=== PATIENT | male | born 1965 | race Caucasian/White ===

== ENCOUNTER 2024-09-13 17:04 | Inpatient (IN) ==
[2024-09-13 18:07] LABS: Alanine Aminotransferase 15 U/L (7-52); Albumin Globulin Ratio 1.5 (0.9-2); Alkaline Phosphatase 93 U/L (34-104); Anion Gap 7 (3-11); Aspartate Aminotransferase 14 U/L (13-39); Bilirubin,Total 0.4 mg/dl (0.2-1.0); Blood Urea Nitrogen 12 mg/dl (6-23); Calcium 9.1 mg/dl (8.6-10.3); Carbon Dioxide 29 mmol/L (21-32); Chloride 107 mmol/L (98-107); Globulin 2.7 gm/dl (2.5-4.0); Glucose 109 mg/dl (70-99(Fasting)); Magnesium 1.9 mg/dl (1.7-2.4); Potassium 4.1 mmol/L (3.5-5.1); Sodium 143 mmol/L (136-145); Total Protein 6.7 gm/dl (6.0-8.3)
[2024-09-13 18:11] LABS: Appearance Urine Clear (Clear); Bacteria Urine Automated None Seen (None Seen); Bilirubin Urine Negative (Negative); Blood Urine Negative (Negative); Cast Urine Automated 0-2 /lpf (0-2); Color Urine Yellow; Glucose Urine UA Negative (Negative); Ketones Urine Trace (Negative); Leukocyte Esterase Urine Trace (Negative); Mucus Urine Present (None Prsent); Nitrite Urine Negative (Negative); Protein Urine Negative (Negative); RBC Urine Automated 0-2 /hpf (0-2); Urobilinogen Urine Negative (Negative); pH Urine 6.5 (4.5-7.5)
[2024-09-13 18:13] LABS: Troponin I High Sensitivity 4.6 pg/ml (0-20)
[2024-09-13 18:15] LABS: INR 0.9 (0.9-1.1); Partial Thromboplastin Ratio 0.9; Partial Thromboplastin Time 25 Seconds (21-31); Prothrombin Time 9.8 Seconds (9.0-12.0)
[2024-09-13 18:16] LABS: Basophils # (auto) 0.01 K/uL (0.00-0.20); Basophils % (auto) 0.1 %; Eosinophils # (auto) 0.15 K/uL (0.00-0.50); Eosinophils % (auto) 2.2 %; Hematocrit (blood only) 39.4 % (42.0-52.0); Hemoglobin 12.7 g/dl (14.0-18.0); Immature Granulocytes # (auto) 0.04 K/uL (0.01-0.20); Immature Granulocytes % (auto) 0.6 %; Lymphocytes % (auto) 18.8 %; Mean Corpuscular Hemoglobin 25.8 pg (25.0-34.0); Mean Corpuscular Hgb Conc 32.2 g/dL (32.0-36.0); Mean Corpuscular Volume 80.1 fL (80.0-100.0); Monocytes # (auto) 0.53 K/uL (0.11-0.59); Monocytes % (auto) 7.7 %; Neutrophils # (auto) 4.89 K/uL (1.40-6.50); Neutrophils % (auto) 70.6 %; Platelet Count 259 K/uL (130-400); RDW Coefficient of Variation 13.8 % (11.5-14.5); RDW Standard Deviation 39.8 fL (36.4-46.3); Red Blood Count 4.92 M/uL (4.70-6.10); White Blood Count 6.92 K/ul (4.8-10.8)
--- NOTE | 2024-09-13 18:34 | Emergency Department Note ---
Impression & Plan Slurred speech, Falls ED Provider Note Provider: Radu Guo MD DATE OF SERVICE: 09/13/2024 CHIEF COMPLAINT: Slurred speech, discoordination and falls, facial droop, tongue swollen HISTORY OF PRESENT ILLNESS: Patient is a 59-year-old gentleman history of cardiac stents and hypertension on Plavix presenting here with family for evaluation of issues developing of the past 3 weeks. Approximate 3 weeks of the patient had from report of fairly sudden onset of some right facial droop slurred speech and discoordination. Evidently was seen at [facility] and had imaging and was told this was not a stroke and sent home. Followed up this past week with his family doctor who placed outpatient neurology referral. They heard today that the patient would not be able to be seen by neurology until July 2025. Patient has had falls every day at home due to his discoordination and has not improved at all. They states seems at times like he is choking a little bit on food and drink. Patient denies any significant pain. States he has fallen somewhat frequently. Denies fever or significant cough or cold symptoms. No history of stroke. He denies any numbness. Family are frustrated as things have changed as is the patient once some additional answers and evaluation. PAST MEDICAL HISTORY: As noted above MEDICATIONS: Reviewed home medication list available with family SOCIAL HISTORY: Not currently smoking PHYSICAL EXAM: GENERAL: alert and oriented in no acute distress on stretcher Head: normocephalic and atraumatic EYES: No injection, discharge or icterus. PERRL, EOMI. NECK: Trachea midline. Supple without crepitus ENT: Mucous membranes pink and moist. Pharynx without erythema or exudate. Tongue seems somewhat prominent and swollen but not particularly erythematous. No stridor or trismus appreciable LUNGS: Airway patent. No retractions. Breath sounds clear with good air entry bilaterally. HEART: Regular rate and rhythm. No chest wall tenderness ABDOMEN: Soft and non-tender, without guarding or rebound. SKIN: Acyanotic, warm, dry, without rashes EXTREMITIES: Without swelling, tenderness or deformity NEUROLOGICAL: Right facial droop and slurred speech. Moving all extremities fairly symmetrically with decent strength but some bilateral finger-nose ataxia. No clear aphasia. Tongue midline. EK bpm normal sinus rhythm. No PVC or PAC. No acute ST segment elevation or depression with QTc of 414. CONTINUOUS CARDIAC MONITORING: was ordered and showed a heart rate of 60s to 80s bpm in normal sinus rhythm Patient's laboratory studies and imaging reviewed. Differential includes Infection, dehydration, metabolic abnormality, hypo/hyperglycemia, electrolyte disturbance, anemia, hypoxia, cardiac sources, intracerebral event/neurologic, as well as other pathologies. IMPRESSION/MEDICAL DECISION MAKING: Patient with some obvious slurred speech and right facial droop. Moving all extremities but does have some particular bilateral [id number] ataxia. 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 Seems to do [id number] bilaterally fairly symmetric. Tongue does appear a bit generous in size but not stridulous. Do have significant concerns patient suffering from some possible neurological complication of possible CVA. He is not however hemiplegic at this time and certainly symptoms been ongoing for several weeks and outside the window for any thrombolytics. Will send for CT imaging of the head as well as CT angiograms. Blood work to be obtained. Patient does not appear meningitic. There is no evidence of any significant physical trauma and the patient denies pain. There is no other infectious symptoms and he is not on an CARO inhibitor. Time course also does not seem that consistent with everything else to represent angioedema. Blood work here without anemia or leukocytosis of significance. No severe electrolyte abnormal signs of renal dysfunction. UA negative as well as respiratory viral panel. CT of the head and CT angiograms of the head and neck per radiology without acute intracranial abnormality such as bleed or mass noted. No large vessel occlusion with some plaque calcifications noted but no severe/critical stenoses reported. Discussed with patient and family. Has been stable for some time but given that outpatient neurology has told him would be 11 months to be seen and with his significant fall history and deficits to believe that bring him in for further neurological workup including MRI and neurologic consultation seems reasonable. Does not seem like encephalitis or meningitis. Will attempt to obtain records from outside facility. DIAGNOSIS: Slurred speech, falls DISPOSITION: Hospitalist will evaluate Patient was agreeable with this plan. Past Med/Surg History Problem List (Updated 09/13/24 @ 21:24 by Radu Guo M.D.) Falls (Acute) Slurred speech (Acute) Social History Smoking Status: Former smoker Preferred Language: [place] Feels Safe at Home: Yes Home Meds Home Medications Medication Instructions Recorded Confirmed DuoNeb 2.5 mg NEB Q4 PRN Shortness Of 10/18/24 10/18/24 Breath Narcan 4 mg intranasal PRN Opioid Overdose 09/13/24 albuterol sulfate 90 mcg/actuation 2 puff inhalation 4XD PRN 09/13/24 09/13/24 aerosol inhaler Shortness Of Breath aspirin 81 mg tablet,delayed 81 mg PO DAILY 09/13/24 09/13/24 release atorvastatin 40 mg tablet 40 mg DAILY 09/13/24 09/13/24 clopidogrel 75 mg tablet 75 mg PO DAILY 09/13/24 09/13/24 diazepam 5 mg tablet 5 mg PO HS 09/13/24 09/13/24 ezetimibe 10 mg tablet 10 mg PO DAILY 09/13/24 09/13/24 fluticasone fur. 100 mcg-umeclid 1 inh inhalation DAILY 09/13/24 09/13/24 62.5 mcg-vilant 25 mcg inhalat.powder (Trelegy Ellipta) fluticasone propionate 50 2 spray intranasal DAILY 09/13/24 09/13/24 mcg/actuation nasal spray,suspension hydrocodone 7.5 mg-acetaminophen 1 tab PO 3XD PRN Pain 09/13/24 09/13/24 325 mg tablet meclizine 25 mg tablet 25 mg PO TID PRN Dizziness Or 09/13/24 09/13/24 Vertigo metformin 500 mg tablet 500 mg PO BID 09/13/24 09/13/24 metoprolol tartrate 50 mg tablet 50 mg PO DAILY 09/13/24 09/13/24 pantoprazole 40 mg tablet,delayed 40 mg PO DAILY 09/13/24 09/13/24 release terazosin 5 mg capsule mg 09/13/24 zaleplon 5 mg capsule 5 mg PO HS 09/13/24 09/13/24 Results & Data (ED) Vital Signs Vital Signs - 24 hr 09/13/24 17:10 09/13/24 18:36 09/13/24 19:06 Temperature 36.7 C Temperature Source Temporal Artery Scan Pulse Rate 66 73 Pulse Rate [Finger] 63 Pulse Rhythm [Finger] Regular Pulse Strength [Finger] Normal Respiratory Rate 19 18 Respiratory Effort / Characteristics Non-Labored Spontaneous Respiratory Depth Normal Blood Pressure 121/62 Blood Pressure [Right Arm] 122/63 Blood Pressure Mean 81 Blood Pressure Mean [Right Arm] 82 Blood Pressure Position [Right Arm] Lying Pulse Oximetry 96 Oxygen Delivery Method Room Air Sepsis Recent Fever Within 48 Hours No Sepsis New/Unexplained Change in Mental Status N/A Sepsis Action Taken by Nursing No Action Required Laboratory Data 09/13/24 17:30 09/13/24 17:30 Lab Results 09/13/24 09/13/24 Range/Units 17:30 17:47 WBC 6.92 (4.8-10.8) K/ul RBC 4.92 (4.70-6.10) M/uL Hgb 12.7 L (14.0-18.0) g/dl Hct 39.4 L (42.0-52.0) % MCV 80.1 (80.0-100.0) fL MCH 25.8 (25.0-34.0) pg MCHC 32.2 (32.0-36.0) g/dL RDW Std Deviation 39.8 (36.4-46.3) fL RDW Coeff of Geno 13.8 (11.5-14.5) % Plt Count 259 (130-400) K/uL MPV 9.0 L (9.4-12.4) fL Immature Gran % (Auto) 0.6 % Neut % (Auto) 70.6 % Lymph % (Auto) 18.8 % Griggs % (Auto) 7.7 % Eos % (Auto) 2.2 % Baso % (Auto) 0.1 % Neut # (Auto) 4.89 (1.40-6.50) K/uL Lymph # (Auto) 1.30 (1.20-3.40) K/uL Griggs # (Auto) 0.53 (0.11-0.59) K/uL Eos # (Auto) 0.15 (0.00-0.50) K/uL Baso # (Auto) 0.01 (0.00-0.20) K/uL Immature Gran # (Auto) 0.04 (0.01-0.20) K/uL PT 9.8 (9.0-12.0) Seconds INR 0.9 (0.9-1.1) APTT 25 (21-31) Seconds PTT Ratio 0.9 Sodium 143 (136-145) mmol/L Potassium 4.1 (3.5-5.1) mmol/L Chloride 107 (98-107) mmol/L Carbon Dioxide 29 (21-32) mmol/L Anion Gap 7 (3-11) BUN 12 (6-23) mg/dl Creatinine 0.86 (0.6-1.4) mg/dl Est Cr Clr Drug Dosing Not Reportable eGFR 100.99 BUN/Creatinine Ratio 14.0 (10-20) Glucose 109 H (70-99(Fasting)) mg/dl Calcium 9.1 (8.6-10.3) mg/dl Magnesium 1.9 (1.7-2.4) mg/dl Total Bilirubin 0.4 (0.2-1.0) mg/dl AST 14 (13-39) U/L ALT 15 (7-52) U/L Alkaline Phosphatase 93 (34-104) U/L Troponin I High Sens 4.6 (0-20) pg/ml Total Protein 6.7 (6.0-8.3) gm/dl Albumin 4.0 (3.4-5.0) gm/dl Globulin 2.7 (2.5-4.0) gm/dl Albumin/Globulin Ratio 1.5 (0.9-2) Urine Color Yellow Urine Appearance Clear (Clear) Urine pH 6.5 (4.5-7.5) Ur Specific [place] 1.020 (1.000-1.030) Urine Protein Negative (Negative) Urine Glucose (UA) Negative (Negative) Urine Ketones Trace H (Negative) Urine Blood Negative (Negative) Urine Nitrite Negative (Negative) Urine Bilirubin Negative (Negative) Urine Urobilinogen Negative (Negative) Ur Leukocyte Esterase Trace H (Negative) Urine WBC (Auto) 6-10 H (0-5) /hpf Urine RBC (Auto) 0-2 (0-2) /hpf U Hyaline Cast (Auto) 0-2 (0-2) /lpf U Epithel Cells (Auto) 3-5 H (0-2) /hpf Urine Bacteria (Auto) None Seen (None Seen) Urine Mucus Present A (None Prsent) Adenovirus (PCR) Not Detected (NotDetected) B. pertussis DNA (PCR) Not Detected (NotDetected) B.parapertussis DNA PCR Not Detected (NotDetected) C. pneumoniae DNA (PCR) Not Detected (NotDetected) Coronavirus OC43 (PCR) Not Detected (NotDetected) Coronavirus HKU1 (PCR) Not Detected (NotDetected) Coronavirus 229E (PCR) Not Detected (NotDetected) SARS-CoV-2 (PCR) Not Detected (NotDetected) Coronavirus NL63 (PCR) Not Detected (NotDetected) Human Metapneumovir PCR Not Detected (NotDetected) Influenza Type A (PCR) Not Detected (NotDetected) Influenza Type B (PCR) Not Detected (NotDetected) M. pneumoniae (PCR) Not Detected (NotDetected) Parainfluenza 1 (PCR) Not Detected (NotDetected) Parainfluenza 2 (PCR) Not Detected (NotDetected) Parainfluenza 3 (PCR) Not Detected (NotDetected) Parainfluenza 4 (PCR) Not Detected (NotDetected) RSV (PCR) Not Detected (NotDetected) Entero/Rhino (PCR) Not Detected (NotDetected) Administered Medications Discontinued Medications Gadobutrol (Gadobutrol 15ml Vial) 10.5 ml IV ONCE ONE Stop: 09/13/24 20:59 Last Admin: 09/13/24 20:59 Dose: 10.5 ml Documented By: JUAN LUIS Ioversol (Optiray 320 125ml) 119 ml IV ONCE ONE Stop: 09/13/24 18:35 Last Admin: 09/13/24 18:35 Dose: 119 ml Documented By: CE[facility] Imaging Data Radiologist's Impression: Head CT 09/13/24 17:32 CT OF THE HEAD WITHOUT CONTRAST CLINICAL HISTORY: neuro deficit, acute stroke suspected COMPARISON STUDY: No previous studies for comparison. TECHNIQUE: Helical axial images of the head were obtained without IV contrast. Automated exposure control was utilized for the study. A dose lowering technique was utilized adhering to the principles of ALARA. FINDINGS: No acute intracranial hemorrhage, midline shift or mass effect is present. The ventricular system is unremarkable. The basal cisterns are patent. No extra-axial collections are present. There are no findings to suggest acute dural sinus thrombosis or acute territorial infarct. Mild cerebellar atrophy. No significant calvarial abnormalities are present. There is a small mucous retention cyst within the right maxillary sinus. IMPRESSION: No acute intracranial findings. ACT 112: Negative or not required by law. Electronically signed by: Deven Zapata M.D. 09/13/2024 6:42 PM Head CTA 09/13/24 17:32 CTA ANGIOGRAPHY OF THE HEAD CLINICAL HISTORY: neuro deficit, acute stroke suspected COMPARISON STUDY: No previous studies for comparison. TECHNIQUE: Helical axial images of the head were obtained following uneventful intravenous administration of 119 cc of Optiray. Sagittal and coronal reconstructions were viewed as well as maximal intensity projections on an independent 3-D workstation. Automated exposure control was utilized for the study. A dose lowering technique was utilized adhering to the principles of ALARA. CT DOSE: 1068.34 mGy.cm FINDINGS: There is extensive plaque within the bilateral cavernous carotids. This results in moderate stenoses of these vessels. The bilateral M1, M2, A1 and A2 segments are patent. No intracranial aneurysm. There is no dissection within the intracranial vessels. No vessel occlusion within the posterior circulation is identified. Mild stenosis of the intracranial portion of the left vertebral artery is noted. There is persistence of the left posterior cerebral artery. IMPRESSION: 1. No large vessel occlusion. No intracranial aneurysm. 2. Extensive calcified plaque within the bilateral cavernous carotids which results in moderate stenosis of these vessels. ACT 112: Negative or not required by law. Electronically signed by: Deven Zapata M.D. 09/13/2024 6:50 PM Neck CTA 09/13/24 17:32 CT ANGIOGRAPHY OF THE NECK WITH CONTRAST CLINICAL HISTORY: neuro deficit, acute stroke suspected COMPARISON STUDY: No previous studies for comparison. Technique: CT angiography of the carotid and vertebral arteries was obtained using Optiray and 3D reconstruction on an independent workstation. NASCET criteria was utilized. Automated exposure control was utilized for the study. A dose lowering technique was utilized adhering to the principles of ALARA. Findings: A 6 mm left upper lobe nodule on image 51 of 421 is incidentally noted. Lung apices are otherwise unremarkable. There are no cervical spine fractures. There is no cervical lymphadenopathy. The vertebral arteries are patent. The right vertebral artery is dominant. Mild multifocal stenoses of the left vertebral artery within the neck are present. Suspected right carotid endarterectomy. The right common carotid and cervical internal carotid arteries are patent. There is moderate plaque within the proximal left internal carotid artery which results in mild narrowing with 30% stenosis. No severe stenoses are present. There is no dissection or aneurysm within the neck. IMPRESSION: 1. Status post suspected right carotid endarterectomy. No recurrent stenosis within the right internal carotid artery. 2. Mild stenosis of the proximal left internal carotid artery, as described above. No severe stenoses. 3. Mild multifocal stenoses within the cervical portion of the left vertebral artery. 4. 6 mm left upper lobe pulmonary nodule. A chest CT in 6 months to ensure stability is recommended. ACT 112: Negative or not required by law. Electronically signed by: Deven Zapata M.D. 09/13/2024 6:48 PM Discharge Plan Visit Data Chief Complaint: TIA Symptoms Stated Complaint: DROOLING, CONFUSION, UNSTABLE, SPEACH ED Provider: Radu Guo Discharge Problem: Slurred speech, Falls Patient Disposition: Being Evaluated by Hospitalist Forms Stand Alone Forms: [facility] Prescriptions Prescriptions: No Action albuterol sulfate 90 mcg/actuation HFA aerosol inhaler 2 puff INHALATION 4XD PRN (Reason: Shortness Of Breath) atorvastatin 40 mg tablet 40 mg DAILY clopidogrel 75 mg tablet 75 mg PO DAILY diazepam 5 mg tablet 5 mg PO HS ezetimibe 10 mg tablet 10 mg PO DAILY fluticasone propionate 50 mcg/actuation spray,suspension 2 spray INTRANASAL DAILY hydrocodone-acetaminophen 7.5-325 mg tablet 1 tab PO 3XD PRN (Reason: Pain) meclizine 25 mg tablet 25 mg PO TID PRN (Reason: Dizziness Or Vertigo) metformin 500 mg tablet 500 mg PO BID metoprolol tartrate 50 mg tablet 50 mg PO DAILY pantoprazole 40 mg tablet,delayed release (DR/EC) 40 mg PO DAILY terazosin 5 mg capsule Trelegy Ellipta 100-62.5-25 mcg blister with device 1 inh INHALATION DAILY zaleplon 5 mg capsule 5 mg PO HS aspirin 81 mg tablet,delayed release (DR/EC) 81 mg PO DAILY Narcan 4 mg 4 mg intranasal PRN (Reason: Opioid Overdose) DuoNeb 2.5 mg NEB Q4 PRN (Reason: Shortness Of Breath) Referrals Referrals: PCP,NO [Primary Care Provider] -
[2024-09-13] MEDS: OPTIRAY 320 125ml IV ONE (18:35)
--- NOTE | 2024-09-13 18:43 | CT Scan Report ---
CT OF THE HEAD WITHOUT CONTRAST CLINICAL HISTORY: neuro deficit, acute stroke suspected COMPARISON STUDY: No previous studies for comparison. TECHNIQUE: Helical axial images of the head were obtained without IV contrast. Automated exposure con trol was utilized for the study. A dose lowering technique was utilized adhering to the principles o f ALARA. FINDINGS: No acute intracranial hemorrhage, midline shift or mass effect is present. The ventricular system is unremarkable. The basal cisterns are patent. No extra-axial collections are present. There are no findings to suggest acute dural sinus thrombosis or acute territorial infarct. Mild cerebellar atrophy. No significant calvarial abnormalities are present. There is a small mucous retention cyst within the right maxillary sinus. IMPRESSION: No acute intracranial findings. ACT 112: Negative or not required by law. Electronically signed by: Deven Zapata M.D. 09/13/2024 6:42 PM
--- NOTE | 2024-09-13 18:50 | CT Scan Report ---
CT ANGIOGRAPHY OF THE NECK WITH CONTRAST CLINICAL HISTORY: neuro deficit, acute stroke suspected COMPARISON STUDY: No previous studies for comparison. Technique: CT angiography of the carotid and vertebral arteries was obtained using Optiray and 3D rec onstruction on an independent workstation. NASCET criteria was utilized. Automated exposure control was utilized for the study. A dose lowering technique was utilized adhering to the principles of ALA RA. Findings: A 6 mm left upper lobe nodule on image 51 of 421 is incidentally noted. Lung apices are oth erwise unremarkable. There are no cervical spine fractures. There is no cervical lymphadenopathy. The vertebral arteries are patent. The right vertebral artery is dominant. Mild multifocal stenoses of t he left vertebral artery within the neck are present. Suspected right carotid endarterectomy. The rig ht common carotid and cervical internal carotid arteries are patent. There is moderate plaque within the proximal left internal carotid artery which results in mild narrowing with 30% stenosis. No sever e stenoses are present. There is no dissection or aneurysm within the neck. IMPRESSION: 1. Status post suspected right carotid endarterectomy. No recurrent stenosis within the right interna l carotid artery. 2. Mild stenosis of the proximal left internal carotid artery, as described above. No severe stenoses . 3. Mild multifocal stenoses within the cervical portion of the left vertebral artery. 4. 6 mm left upper lobe pulmonary nodule. A chest CT in 6 months to ensure stability is recommended. ACT 112: Negative or not required by law. Electronically signed by: Deven Zapata M.D. 09/13/2024 6:48 PM
[2024-09-13 18:52] LABS: Adenovirus PCR Not Detected (NotDetected); Bordetella parapertussis PCR Not Detected (NotDetected); Bordetella pertussis PCR Not Detected (NotDetected); Chlamydia pneumoniae PCR Not Detected (NotDetected); Coronavirus 229E PCR Not Detected (NotDetected); Coronavirus CoV-2 (COVID19)PCR Not Detected (NotDetected); Coronavirus HKU1 PCR Not Detected (NotDetected); Coronavirus NL63 PCR Not Detected (NotDetected); Coronavirus OC43PCR Not Detected (NotDetected); Human Metapneumovirus PCR Not Detected (NotDetected); Influenza A PCR Not Detected (NotDetected); Influenza B PCR Not Detected (NotDetected); Mycoplasma pneumoniae PCR Not Detected (NotDetected); Parainfluenza Virus 1 PCR Not Detected (NotDetected); Parainfluenza Virus 2 PCR Not Detected (NotDetected); Parainfluenza Virus 3 PCR Not Detected (NotDetected); Parainfluenza Virus 4 PCR Not Detected (NotDetected); Respiratory Syncytial VirusPCR Not Detected (NotDetected); Rhinovirus/Enterovirus PCR Not Detected (NotDetected)
--- NOTE | 2024-09-13 18:52 | CT Scan Report ---
CTA ANGIOGRAPHY OF THE HEAD CLINICAL HISTORY: neuro deficit, acute stroke suspected COMPARISON STUDY: No previous studies for comparison. TECHNIQUE: Helical axial images of the head were obtained following uneventful intravenous administr ation of 119 cc of Optiray. Sagittal and coronal reconstructions were viewed as well as maximal inten sity projections on an independent 3-D workstation. Automated exposure control was utilized for the study. A dose lowering technique was utilized adhering to the principles of ALARA. CT DOSE: 1068.34 mGy.cm FINDINGS: There is extensive plaque within the bilateral cavernous carotids. This results in moderate stenoses of these vessels. The bilateral M1, M2, A1 and A2 segments are patent. No intracranial aneu rysm. There is no dissection within the intracranial vessels. No vessel occlusion within the posterio r circulation is identified. Mild stenosis of the intracranial portion of the left vertebral artery i s noted. There is persistence of the left posterior cerebral artery. IMPRESSION: 1. No large vessel occlusion. No intracranial aneurysm. 2. Extensive calcified plaque within the bilateral cavernous carotids which results in moderate steno sis of these vessels. ACT 112: Negative or not required by law. Electronically signed by: Deven Zapata M.D. 09/13/2024 6:50 PM
--- NOTE | 2024-09-13 20:58 | History & Physical Report ---
Date of Service September 13, 2024 Assessment & Plan (1) Stroke-like symptoms: (2) History of CVA with residual deficit: (3) Dysarthria as late effect of cerebrovascular accident (CVA): (4) Ambulatory dysfunction: (5) CAD (coronary artery disease): (6) History of coronary artery stent placement: (7) Carotid stenosis, bilateral: (8) Stenosis of left vertebral artery: (9) Lumbar back pain with radiculopathy affecting left lower extremity: (10) History of lumbosacral spine surgery: (11) History of right-sided carotid endarterectomy: (12) Incidental pulmonary nodule, > 3mm and < 8mm: Plan Strokelike symptoms/worsening slurred speech/drooling left side/worsening ambulatory dysfunction- The patient will be admitted to telemetry for serial cardiac enzymes, serial EKG's, cardiac rhythm monitoring and a 2-D echocardiogram with Dopplers. CT of head without contrast shows no acute findings CTA of head shows moderate stenosis of bilateral cavernous carotids CTA of neck shows status post right CEA with no recurrent stenosis. Mild stenosis of proximal left ICA. Mild multifocal stenoses within cervical portion of left vertebral artery MRI of brain with and without contrast shows mild age-related findings. No acute abnormal enhancement, acute infarct, bleed or acute intracranial abnormality Continue aspirin, clopidogrel Change metoprolol to tartrate from 50 mg p.o. daily to 25 mg p.o. twice daily Consult PT/OT/speech therapy Consult neurology Stroke without tPA order set EEG may be of value Check vitamin B12, folate, iron studies and TSH CAD/hypertension/history of coronary stents x 2- The patient will be admitted to telemetry for serial cardiac enzymes, serial EKG's, cardiac rhythm monitoring and a 2-D echocardiogram with Dopplers. Continue aspirin, clopidogrel as noted above Adjusting metoprolol to tartrate 25 mg twice daily Follows with Dr. Pineda at [place] Hyperlipidemia- Continue Zetia 10 mg daily Increase atorvastatin from 40 to 80 mg daily Check a fasting lipid panel Diabetes mellitus- Hold metformin Placed on Accu-Cheks with NovoLog SSI Check hemoglobin A1c COPD- Continue Trelegy Ellipta and albuterol sulfate Lumbar degenerative disc disease/multiple lumbar surgeries/left lower extremity weakness- Hold as needed [place] History of Present Illness Chief Complaint: The patient's HPI and review of systems are supplemented significantly by family members who are in attendance. The patient had been noted to have slurred speech for a number of years after previous CVA, however, they noted that his speech had become more slurred, he was drooling out of the left side of his mouth, and his ability to maintain balance when walking had significantly worsened, with frequent falls. He had been taken to [facility] emergency department on 08/30/2024, where he had a neurologic workup, it was negative for CVA, and he was advised to follow-up in the outpatient setting with neurology, which they report that the first appointment was available in [id number]. Due to worsening symptoms, he was brought to the emergency department at [facility] for a second opinion. Primary Care Provider: NO PCP The patient is a 59-year-old male with a past medical history including COPD, hyperlipidemia, insomnia, previous CVA, chronic pain syndrome with history of multiple lumbar spine surgeries and left lower extremity weakness, vertigo, diabetes mellitus, GERD, BPH with LUTS, coronary artery stent x 2, carotid artery stenosis and history of right CEA. He is brought to the emergency department by family as noted above. Main complaints are worsening slurred speech over the past 3 weeks, drooling left side of his mouth, worsening ambulatory dysfunction with frequent falls. He has still been able to take his usual medications as directed. Allergies Allergy/AdvReac Type Severity Reaction Status Date / Time No Known Allergies Allergy Unverified 09/13/24 22:38 Home Medications Medication Instructions Recorded Confirmed Type DuoNeb 2.5 mg NEB Q4 PRN Shortness Of 09/13/24 09/13/24 History Breath Narcan 4 mg intranasal PRN Opioid Overdose 09/13/24 History albuterol sulfate 90 mcg/actuation 2 puff inhalation 4XD PRN 09/13/24 09/13/24 History aerosol inhaler Shortness Of Breath aspirin 81 mg tablet,delayed 81 mg PO DAILY 09/13/24 09/13/24 History release atorvastatin 40 mg tablet 40 mg DAILY 09/13/24 09/13/24 History clopidogrel 75 mg tablet 75 mg PO DAILY 09/13/24 09/13/24 History diazepam 5 mg tablet 5 mg PO HS 09/13/24 09/13/24 History ezetimibe 10 mg tablet 10 mg PO DAILY 09/13/24 09/13/24 History fluticasone fur. 100 mcg-umeclid 1 inh inhalation DAILY 09/13/24 09/13/24 History 62.5 mcg-vilant 25 mcg inhalat.powder (Trelegy Ellipta) fluticasone propionate 50 2 spray intranasal DAILY 09/13/24 09/13/24 History mcg/actuation nasal spray,suspension hydrocodone 7.5 mg-acetaminophen 1 tab PO 3XD PRN Pain 09/13/24 09/13/24 History 325 mg tablet meclizine 25 mg tablet 25 mg PO TID PRN Dizziness Or 09/13/24 09/13/24 History Vertigo metformin 500 mg tablet 500 mg PO BID 09/13/24 09/13/24 History metoprolol tartrate 50 mg tablet 50 mg PO DAILY 09/13/24 09/13/24 History pantoprazole 40 mg tablet,delayed 40 mg PO DAILY 09/13/24 09/13/24 History release terazosin 5 mg capsule mg 09/13/24 History zaleplon 5 mg capsule 5 mg PO HS 09/13/24 09/13/24 History Past Med/Surg History Problem List (Updated 09/14/24 @ 01:52 by Cheng Traore MD) 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 Stroke-like symptoms History of right-sided carotid endarterectomy History of lumbosacral spine surgery Lumbar back pain with radiculopathy affecting left lower extremity Ambulatory dysfunction Incidental pulmonary nodule, > 3mm and < 8mm Stenosis of left vertebral artery Carotid stenosis, bilateral History of coronary artery stent placement CAD (coronary artery disease) Falls (Acute) Slurred speech (Acute) Social History Smoking Status: Former smoker Tobacco Type: Cigarettes Smoking End Date: 2019; Second Hand Exposure: No; Do You Dip or Chew Tobacco: No; Tobacco Cessation Education Requested by Patient: No Hx Alcohol Use: No Hx Substance Use: No Preferred Language: Greenlandic Communication Ability: Effective 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 Normocephalic and atraumatic, lying in bed and in no acute distress. HEENT--PERRL, EOMI, mucous membranes and oropharynx dry. Neck--supple. No JVD. No bruits. Thyroid normal, trachea midline, no monica nopathy. Heart--normal S1 and S2. No murmurs, rubs or gallops. Lungs--clear bilaterally, no respiratory distress, no accessory muscle use. Abdomen--normal bowel sounds and soft. Nontender. Nondistended. Obese Extremities--no cyanosis or clubbing. No edema. Dermatologic--normal skin turgor, normal color, no abnormal lymph nodes, no rash. Neurologic--cranial nerves II through XII grossly intact. Rheumatologic--normal range of motion. Psychiatric--normal affect. Results & Data Results & Data Vital Signs (Past 12 Hours) Vital Signs Temp Pulse Pulse Resp BP BP Pulse Ox 09/13/24 19:06 63 18 122/63 09/13/24 18:36 73 09/13/24 17:10 36.7 C 66 19 121/62 96 O2 Del Method 09/13/24 19:06 09/13/24 18:36 09/13/24 17:10 Room Air Laboratory Results Laboratory Results WBC 6.92 K/ul (4.8-10.8) 09/13/24 17:30 RBC 4.92 M/uL (4.70-6.10) 09/13/24 17:30 Hgb 12.7 g/dl (14.0-18.0) L 09/13/24 17:30 Hct 39.4 % (42.0-52.0) L 09/13/24 17:30 MCV 80.1 fL (80.0-100.0) 09/13/24 17:30 MCH 25.8 pg (25.0-34.0) 09/13/24 17:30 MCHC 32.2 g/dL (32.0-36.0) 09/13/24 17:30 RDW Std Deviation 39.8 fL (36.4-46.3) 09/13/24 17:30 RDW Coeff of Geno 13.8 % (11.5-14.5) 09/13/24 17:30 Plt Count 259 K/uL (130-400) 09/13/24 17:30 MPV 9.0 fL (9.4-12.4) L 09/13/24 17:30 Immature Gran % (Auto) 0.6 % 09/13/24 17:30 Neut % (Auto) 70.6 % 09/13/24 17:30 Lymph % (Auto) 18.8 % 09/13/24 17:30 [place] % (Auto) 7.7 % 09/13/24 17:30 Eos % (Auto) 2.2 % 09/13/24 17:30 Baso % (Auto) 0.1 % 09/13/24 17:30 Neut # (Auto) 4.89 K/uL (1.40-6.50) 09/13/24 17:30 Lymph # (Auto) 1.30 K/uL (1.20-3.40) 09/13/24 17:30 [place] # (Auto) 0.53 K/uL (0.11-0.59) 09/13/24 17:30 Eos # (Auto) 0.15 K/uL (0.00-0.50) 09/13/24 17:30 Baso # (Auto) 0.01 K/uL (0.00-0.20) 09/13/24 17:30 Immature Gran # (Auto) 0.04 K/uL (0.01-0.20) 09/13/24 17:30 PT 9.8 Seconds (9.0-12.0) 09/13/24 17:30 INR 0.9 (0.9-1.1) 09/13/24 17:30 APTT 25 Seconds (21-31) 09/13/24 17:30 PTT Ratio 0.9 09/13/24 17:30 Sodium 143 mmol/L (136-145) 09/13/24 17:30 Potassium 4.1 mmol/L (3.5-5.1) 09/13/24 17:30 Chloride 107 mmol/L (98-107) 09/13/24 17:30 Carbon Dioxide 29 mmol/L (21-32) 09/13/24 17:30 Anion Gap 7 (3-11) 09/13/24 17:30 BUN 12 mg/dl (6-23) 09/13/24 17:30 Creatinine 0.86 mg/dl (0.6-1.4) 09/13/24 17:30 Est Cr Clr Drug Dosing Not Reportable 09/13/24 17:30 eGFR 100.99 09/13/24 17:30 BUN/Creatinine Ratio 14.0 (10-20) 09/13/24 17:30 Glucose 109 mg/dl (70-99(Fasting)) H 09/13/24 17:30 POC Glucose 108 mg/dl (70-99) H 09/13/24 22:58 Calcium 9.1 mg/dl (8.6-10.3) 09/13/24 17:30 Magnesium 1.9 mg/dl (1.7-2.4) 09/13/24 17:30 Iron 50 mcg/dl (35-175) 09/13/24 17:30 TIBC 337 mcg/dl (250-450) 09/13/24 17:30 Unsaturated IBC 287 mcg/dl (155-355) 09/13/24 17:30 Transferrin % Sat 15 % (20-50) L 09/13/24 17:30 Total Bilirubin 0.4 mg/dl (0.2-1.0) 09/13/24 17:30 AST 14 U/L (13-39) 09/13/24 17:30 ALT 15 U/L (7-52) 09/13/24 17:30 Alkaline Phosphatase 93 U/L (34-104) 09/13/24 17:30 Troponin I High Sens 4.6 pg/ml (0-20) 09/13/24 17:30 Total Protein 6.7 gm/dl (6.0-8.3) 09/13/24 17:30 Albumin 4.0 gm/dl (3.4-5.0) 09/13/24 17:30 Globulin 2.7 gm/dl (2.5-4.0) 09/13/24 17:30 Albumin/Globulin Ratio 1.5 (0.9-2) 09/13/24 17:30 Vitamin B12 335 pg/ml (180-914) 09/13/24 17:30 Folate 11.16 ng/ml (>5.38) 09/13/24 17:30 TSH 1.859 uIu/ml (0.300-4.500) 09/13/24 17:30 Urine Color Yellow 09/13/24 17:47 Urine Appearance Clear (Clear) 09/13/24 17:47 Urine pH 6.5 (4.5-7.5) 09/13/24 17:47 Ur Specific [place] 1.020 (1.000-1.030) 09/13/24 17:47 Urine Protein Negative (Negative) 09/13/24 17:47 Urine Glucose (UA) Negative (Negative) 09/13/24 17:47 Urine Ketones Trace (Negative) H 09/13/24 17:47 Urine Blood Negative (Negative) 09/13/24 17:47 Urine Nitrite Negative (Negative) 09/13/24 17:47 Urine Bilirubin Negative (Negative) 09/13/24 17:47 Urine Urobilinogen Negative (Negative) 09/13/24 17:47 Ur Leukocyte Esterase Trace (Negative) H 09/13/24 17:47 Urine WBC (Auto) 6-10 /hpf (0-5) H 09/13/24 17:47 Urine RBC (Auto) 0-2 /hpf (0-2) 09/13/24 17:47 U Hyaline Cast (Auto) 0-2 /lpf (0-2) 09/13/24 17:47 U Epithel Cells (Auto) 3-5 /hpf (0-2) H 09/13/24 17:47 Urine Bacteria (Auto) None Seen (None Seen) 09/13/24 17:47 Urine Mucus Present (None Prsent) A 09/13/24 17:47 Adenovirus (PCR) Not Detected (NotDetected) 09/13/24 17:47 B. pertussis DNA (PCR) Not Detected (NotDetected) 09/13/24 17:47 B.parapertussis DNA PCR Not Detected (NotDetected) 09/13/24 17:47 C. pneumoniae DNA (PCR) Not Detected (NotDetected) 09/13/24 17:47 Coronavirus OC43 (PCR) Not Detected (NotDetected) 09/13/24 17:47 Coronavirus HKU1 (PCR) Not Detected (NotDetected) 09/13/24 17:47 Coronavirus 229E (PCR) Not Detected (NotDetected) 09/13/24 17:47 SARS-CoV-2 (PCR) Not Detected (NotDetected) 09/13/24 17:47 Coronavirus NL63 (PCR) Not Detected (NotDetected) 09/13/24 17:47 Human Metapneumovir PCR Not Detected (NotDetected) 09/13/24 17:47 Influenza Type A (PCR) Not Detected (NotDetected) 09/13/24 17:47 Influenza Type B (PCR) Not Detected (NotDetected) 09/13/24 17:47 M. pneumoniae (PCR) Not Detected (NotDetected) 09/13/24 17:47 Parainfluenza 1 (PCR) Not Detected (NotDetected) 09/13/24 17:47 Parainfluenza 2 (PCR) Not Detected (NotDetected) 09/13/24 17:47 Parainfluenza 3 (PCR) Not Detected (NotDetected) 09/13/24 17:47 Parainfluenza 4 (PCR) Not Detected (NotDetected) 09/13/24 17:47 RSV (PCR) Not Detected (NotDetected) 09/13/24 17:47 Entero/Rhino (PCR) Not Detected (NotDetected) 09/13/24 17:[address] 09/13/24 17:32 CT OF THE HEAD WITHOUT CONTRAST CLINICAL HISTORY: neuro deficit, acute stroke suspected COMPARISON STUDY: No previous studies for comparison. TECHNIQUE: Helical axial images of the head were obtained without IV contrast. Automated exposure control was utilized for the study. A dose lowering technique was utilized adhering to the principles of ALARA. FINDINGS: No acute intracranial hemorrhage, midline shift or mass effect is present. The ventricular system is unremarkable. The basal cisterns are patent. No extra-axial collections are present. There are no findings to suggest acute dural sinus thrombosis or acute territorial infarct. Mild cerebellar atrophy. No significant calvarial abnormalities are present. There is a small mucous retention cyst within the right maxillary sinus. IMPRESSION: No acute intracranial findings. ACT 112: Negative or not required by law. Electronically signed by: Deven Zapata M.D. 09/13/2024 6:42 PM Head CTA 09/13/24 17:32 CTA ANGIOGRAPHY OF THE HEAD CLINICAL HISTORY: neuro deficit, acute stroke suspected COMPARISON STUDY: No previous studies for comparison. TECHNIQUE: Helical axial images of the head were obtained following uneventful intravenous administration of 119 cc of Optiray. Sagittal and coronal reconstructions were viewed as well as maximal intensity projections on an independent 3-D workstation. Automated exposure control was utilized for the study. A dose lowering technique was utilized adhering to the principles of ALARA. CT DOSE: 1068.34 mGy.cm FINDINGS: There is extensive plaque within the bilateral cavernous carotids. This results in moderate stenoses of these vessels. The bilateral M1, M2, A1 and A2 segments are patent. No intracranial aneurysm. There is no dissection within the intracranial vessels. No vessel occlusion within the posterior circulation is identified. Mild stenosis of the intracranial portion of the left vertebral artery is noted. There is persistence of the left posterior cerebral artery. IMPRESSION: 1. No large vessel occlusion. No intracranial aneurysm. 2. Extensive calcified plaque within the bilateral cavernous carotids which results in moderate stenosis of these vessels. ACT 112: Negative or not required by law. Electronically signed by: Deven Zapata M.D. 09/13/2024 6:50 PM Neck CTA 09/13/24 17:32 CT ANGIOGRAPHY OF THE NECK WITH CONTRAST CLINICAL HISTORY: neuro deficit, acute stroke suspected COMPARISON STUDY: No previous studies for comparison. Technique: CT angiography of the carotid and vertebral arteries was obtained using Optiray and 3D reconstruction on an independent workstation. NASCET criteria was utilized. Automated exposure control was utilized for the study. A dose lowering technique was utilized adhering to the principles of ALARA. Findings: A 6 mm left upper lobe nodule on image 51 of 421 is incidentally noted. Lung apices are otherwise unremarkable. There are no cervical spine fractures. There is no cervical lymphadenopathy. The vertebral arteries are patent. The right vertebral artery is dominant. Mild multifocal stenoses of the left vertebral artery within the neck are present. Suspected right carotid endarterectomy. The right common carotid and cervical internal carotid arteries are patent. There is moderate plaque within the proximal left internal carotid artery which results in mild narrowing with 30% stenosis. No severe stenoses are present. There is no dissection or aneurysm within the neck. IMPRESSION: 1. Status post suspected right carotid endarterectomy. No recurrent stenosis within the right internal carotid artery. 2. Mild stenosis of the proximal left internal carotid artery, as described above. No severe stenoses. 3. Mild multifocal stenoses within the cervical portion of the left vertebral artery. 4. 6 mm left upper lobe pulmonary nodule. A chest CT in 6 months to ensure stability is recommended. ACT 112: Negative or not required by law. Electronically signed by: Deven Zapata M.D. 09/13/2024 6:48 PM Brain MRI 09/13/24 20:02 Exam(s): MRI HEAD W/WO Contrast IV Amt: 10.5cc gadavist administered EXAM: MR Head Without and With Intravenous Contrast CLINICAL HISTORY: Reason for exam: altered speech, ambulatory dysfunction. TECHNIQUE: Magnetic resonance images of the head/brain without and with intravenous contrast in multiple planes. Mild to moderate motion artifact. CONTRAST: Patient received 10.5cc gadavist administered of IV contrast COMPARISON: CT/CTA head done earlier. FINDINGS: Brain: No mass effect or acute infarct. No acute hemorrhage. Mild atrophy and chronic white matter disease. No abnormal enhancement or mass. No herniation. Ventricles: No hydrocephalus or midline shift. Bones/joints: No acute finding. Soft tissues: No scalp hematoma. Visualized Sinuses: Clear. Mastoid air cells: No mastoid effusion. IMPRESSION: 1. Mild age-related findings. 2. No abnormal enhancement, acute infarct, bleed, or acute intracranial abnormality. Electronically signed by: Negin Vargas M.D. 09/13/24 23:46 PM Code Status & VTE Plan Code Status Full code VTE Prophylaxis Plan VTE Prophylaxis will be ordered: Yes PG Care Time/CCT Total # of Minutes Spent Total Time Spent with Patient: Total time spent is greater than 50% in coordination of care (as documented) at patient's floor/unit and/or counseling patient: Coding Level of Care Code 90559 INT INP/OBS CARE 3/75MIN Diagnoses Stroke-like symptoms R29.90 History of CVA with residual deficit I69.30 Dysarthria as late effect of cerebrovascular accident (CVA) I69.322 Ambulatory dysfunction R26.2 CAD (coronary artery disease) I25.10 History of coronary artery stent placement Z95.5 Carotid stenosis, bilateral I65.23 Stenosis of left vertebral artery I65.02 Lumbar back pain with radiculopathy affecting left lower extremity M54.16 History of lumbosacral spine surgery Z98.890 History of right-sided carotid endarterectomy Z98.890 Incidental pulmonary nodule, > 3mm and < 8mm R91.1
[2024-09-13] MEDS: GADOBUTROL 15ML VIAL IV ONE (20:59)
[2024-09-13 21:45] LABS: Iron 50 mcg/dl (35-175); Total Iron Binding Cap Calc 337 mcg/dl (250-450); Transferrin (FE) Percent Satur 15 % (20-50); Unsaturated Iron Binding Cap 287 mcg/dl (155-355)
[2024-09-13 22:00] LABS: Thyroid Stimulating Hormone 1.859 uIu/ml (0.300-4.500)
[2024-09-13] MEDS ORDERED: DEXTROSE 50% 50 ML SYRINGE IV PRN (22:23)
[2024-09-13] MEDS ORDERED: GLUCOSE 40% GEL 15 GM TUBE PO PRN (22:23)
[2024-09-13] MEDS ORDERED: ALBUTEROL HFA 8 GM INHALER INH PRN (22:23)
[2024-09-13] MEDS ORDERED: GLUCOSE 10 TAB/TUBE PO PRN (22:23)
[2024-09-13] MEDS ORDERED: ALBUT/IPRATROP 3MG/0.5MG NEB 3 ML VIAL NEB PRN (22:23)
[2024-09-13] MEDS ORDERED: ONDANSETRON INJ 2 MG/ML 2 ML VIAL IV PRN (22:23)
[2024-09-13] MEDS ORDERED: CARBOHYDRATES FOR HYPOGLYCEMIA PO PRN (22:23)
[2024-09-13] MEDS ORDERED: GLUCAGON FOR INJ 1 MG VIAL SQ PRN (22:23)
[2024-09-13] MEDS ORDERED: PHARMACIST DISCHARGE MED REC CONSULT PRN (22:23)
[2024-09-13] MEDS ORDERED: Patient's ALLERGY Info needs ENTERED STA (22:30)
[2024-09-13 22:52] LABS: Folate (Folic Acid),Ser orPlas 11.16 ng/ml (>5.38)
[2024-09-13] MEDS: INSULIN ASPART PER UNIT CHARGE SC SCH (23:00)
[2024-09-13] MEDS: HEPARIN SOD 5,000 UNIT/0.5 ML VIAL SQ SCH (23:21)
[2024-09-13] MEDS: NSS + 20MEQ KCL 20 MEQ/1,000 ML BAG IV SCH (23:21)
[2024-09-13] MEDS: diazePAM 5 MG TABLET PO SCH (23:21)
--- NOTE | 2024-09-13 23:46 | Magnetic Resonance Report ---
Exam(s): MRI HEAD W/WO Contrast IV Amt: 10.5cc gadavist administered EXAM: MR Head Without and With Intravenous Contrast CLINICAL HISTORY: Reason for exam: altered speech, ambulatory dysfunction. TECHNIQUE: Magnetic resonance images of the head/brain without and with intravenous contrast in multiple planes. Mild to moderate motion artifact. CONTRAST: Patient received 10.5cc gadavist administered of IV contrast COMPARISON: CT/CTA head done earlier. FINDINGS: Brain: No mass effect or acute infarct. No acute hemorrhage. Mild atrophy and chronic white matter disease. No abnormal enhancement or mass. No herniation. Ventricles: No hydrocephalus or midline shift. Bones/joints: No acute finding. Soft tissues: No scalp hematoma. Visualized Sinuses: Clear. Mastoid air cells: No mastoid effusion. IMPRESSION: 1. Mild age-related findings. 2. No abnormal enhancement, acute infarct, bleed, or acute intracranial abnormality. Electronically signed by: Negin Vargas M.D. 09/13/24 23:46 PM
[2024-09-14] MEDS: ACETAMINOPHEN 325 MG TAB PO PRN (05:16)
[2024-09-14 06:11] LABS: Basophils # (auto) 0.01 K/uL (0.00-0.20); Basophils % (auto) 0.1 %; Eosinophils # (auto) 0.11 K/uL (0.00-0.50); Eosinophils % (auto) 1.4 %; Hematocrit (blood only) 40.7 % (42.0-52.0); Hemoglobin 12.9 g/dl (14.0-18.0); Immature Granulocytes # (auto) 0.03 K/uL (0.01-0.20); Immature Granulocytes % (auto) 0.4 %; Lymphocytes # (auto) 1.18 K/uL (1.20-3.40); Lymphocytes % (auto) 15.2 %; Mean Corpuscular Hemoglobin 25.5 pg (25.0-34.0); Mean Corpuscular Hgb Conc 31.7 g/dL (32.0-36.0); Mean Corpuscular Volume 80.4 fL (80.0-100.0); Mean Platelet Volume 9.1 fL (9.4-12.4); Monocytes # (auto) 0.48 K/uL (0.11-0.59); Monocytes % (auto) 6.2 %; Neutrophils # (auto) 5.93 K/uL (1.40-6.50); Neutrophils % (auto) 76.7 %; Platelet Count 243 K/uL (130-400); RDW Coefficient of Variation 13.8 % (11.5-14.5); RDW Standard Deviation 40.3 fL (36.4-46.3); Red Blood Count 5.06 M/uL (4.70-6.10); White Blood Count 7.74 K/ul (4.8-10.8)
[2024-09-14 06:19] LABS: Albumin Globulin Ratio 1.4 (0.9-2); Albumin Level 3.9 gm/dl (3.4-5.0); BUN Creatinine Ratio 13.7 (10-20); Bilirubin,Total 0.5 mg/dl (0.2-1.0); Calcium 9.2 mg/dl (8.6-10.3); Chol HDL Ratio 4.1 (0-5); Creatinine Clr Calc Pharmacy 144.1 ml/min; Globulin 2.8 gm/dl (2.5-4.0); Potassium 3.9 mmol/L (3.5-5.1); Total Protein 6.7 gm/dl (6.0-8.3)
[2024-09-14 06:39] LABS: INR 0.9 (0.9-1.1); Partial Thromboplastin Time 26 Seconds (21-31)
[2024-09-14 07:40] LABS: Estimated Average Glucose 126 mg/dl
--- NOTE | 2024-09-14 08:18 | XRay Report ---
XR chest 1V portable CLINICAL HISTORY: slurred speech, falls TECHNIQUE: Single frontal radiograph of the chest was obtained. Comparison: None available at the time of this dictation. FINDINGS: No lines and tubes are seen. Cardiomegaly is noted. Right lower lung airspace opacities are seen. No evidence of pleural effusion or pneumothorax. IMPRESSION: Right lower lung airspace opacities. This may represent atelectasis, pneumonia, and/or aspiration. ACT 112: Negative or not required by law. Electronically signed by: Dawit Jaeger M.D. 09/14/2024 8:17 AM
[2024-09-14] MEDS ORDERED: NON-FORMULARY MEDICATION (Fluticasone-Umeclidin-Vilanter [Trelegy Ellipta] 100-62.5-25 mcg INH SCH (09:00)
--- NOTE | 2024-09-14 10:20 | Neurology Consultation ---
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 More likely than not, he has a cerebellar degeneration. His brain MRI does reveal notable cerebellar atrophy. Differential diagnosis includes olivopontocerebellar degeneration, multiple system atrophy, and spinocerebellar ataxia. He does not have a history of alcohol use disorder. He does not have a known family history of neurodegenerative condition or cerebellar ataxia. A paraneoplastic cerebellar degeneration could be considered. However, he has no known history of malignancy, further, the 6-year time course of symptom evolution would tend to argue against paraneoplastic disorders which tend to be acute to subacute. Because he does not exhibit bradykinesia, rigidity, or resting tremor, I would not recommend a trial of levodopa or dopaminergic therapy at this time. He will need consultations with PT/OT/speech therapy. There is no proven pharmacologic treatment for the above neurodegenerative conditions. OPCA is considered part of the MSA spectrum, both of these disorders are synucleinopathies. The spinocerebellar ataxia's are a group of genetic disorders (CAG repeat disorders, often autosomal dominant, however, this patient has no clear family history of such disorder). 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 His imaging reveals no evidence of cerebellar stroke, hemorrhage, or tumor. His signs and symptoms do not appear to be related to any medication he is taking, and again, he has no history of alcohol use disorder. Further, his clinical presentation is not consistent with meningoencephalitis or postinfectious cerebellitis. Paraneoplastic cerebellar degeneration could be considered but is probably unlikely. Consider obtaining Neocerebellar degeneration paraneoplastic profile (Quest code 34705), this is a serum test. The identified pulmonary nodule will need some imaging follow-up as well. History of Present Illness Reason for Consultation: dysarthria, ataxia Requesting Physician: Eugenie Attending Physician: Misha Moreno MD History of Present Illness The patient is a 59-year-old male with a chief complaint of persistent progressive dysarthria beginning about 6 years ago with later development of poor balance, recurrent falls, and clumsiness and incoordination of hand movements. History notable for prior stroke, right carotid endarterectomy, coronary stent, multiple lumbar spine surgeries, COPD. He does not use alcohol, no history of alcohol use disorder. He denies a family history of similar neurodegenerative disease or ataxia in any immediate family member. A CT of the head was negative for hemorrhage or acute process. CTA of the head and neck revealed right carotid endarterectomy status, no recurrent stenosis, mild stenosis of the proximal left ICA, multifocal stenosis of the cervical left vertebral artery and a 6 mm left upper lobe pulmonary nodule. A brain MRI was negative for acute or subacute stroke, no hemorrhage. I did independently review these images, there is notable cerebellar atrophy best observed on sagittal T1 sequences. There is no hydrocephalus. There is no midbrain atrophy. Allergies Allergy/AdvReac Type Severity Reaction Status Date / Time No Known Allergies Allergy Unverified 09/13/24 22:38 Home Medications Medication Instructions Recorded Confirmed Type DuoNeb 2.5 mg NEB Q4 PRN Shortness Of 09/13/24 09/13/24 History Breath Narcan 4 mg intranasal PRN Opioid Overdose 09/13/24 History albuterol sulfate 90 mcg/actuation 2 puff inhalation 4XD PRN 09/13/24 09/13/24 History aerosol inhaler Shortness Of Breath aspirin 81 mg tablet,delayed 81 mg PO DAILY 09/13/24 09/13/24 History release atorvastatin 40 mg tablet 40 mg DAILY 09/13/24 09/13/24 History clopidogrel 75 mg tablet 75 mg PO DAILY 09/13/24 09/13/24 History diazepam 5 mg tablet 5 mg PO HS 09/13/24 09/13/24 History ezetimibe 10 mg tablet 10 mg PO DAILY 09/13/24 09/13/24 History fluticasone fur. 100 mcg-umeclid 1 inh inhalation DAILY 09/13/24 09/13/24 History 62.5 mcg-vilant 25 mcg inhalat.powder (Trelegy Ellipta) fluticasone propionate 50 2 spray intranasal DAILY 09/13/24 09/13/24 History mcg/actuation nasal spray,suspension hydrocodone 7.5 mg-acetaminophen 1 tab PO 3XD PRN Pain 09/13/24 09/13/24 History 325 mg tablet meclizine 25 mg tablet 25 mg PO TID PRN Dizziness Or 09/13/24 09/13/24 History Vertigo metformin 500 mg tablet 500 mg PO BID 09/13/24 09/13/24 History metoprolol tartrate 50 mg tablet 50 mg PO DAILY 09/13/24 09/13/24 History pantoprazole 40 mg tablet,delayed 40 mg PO DAILY 09/13/24 09/13/24 History release terazosin 5 mg capsule mg 09/13/24 History zaleplon 5 mg capsule 5 mg PO HS 09/13/24 09/13/24 History Patient History Social History Smoking Status: Former smoker Tobacco Type: Cigarettes Smoking End Date: 2019; Second Hand Exposure: No; Do You Dip or Chew Tobacco: No; Tobacco Cessation Education Requested by Patient: No Hx Alcohol Use: No Hx Substance Use: No Preferred Language: Ukrainian Communication Ability: Effective 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 Beliefs That Will Affect Care: None Current Living Situation: Family Current Living Situation Comment: lives with sister Other Information That Helps Us Care for You: No Feels Safe at Home: Yes Safety Concerns: Feels Safe At This Time Assistive Devices: Walker Review of Systems Constitutional: no fever and no chills Eyes: no blind spots and no diplopia Ear, Nose, Mouth, Throat: no hearing loss Respiratory: no cough and no dyspnea Cardiovascular: no chest pain and no palpitations Gastrointestinal: no nausea and no vomiting Genitourinary: no dysuria Musculoskeletal: no myalgia and no muscle weakness Integumentary: no rash and no lesions Neurologic: as per Subjective / HPI, + gait abnormality, + lack of coordination, + abnormal movements and + abnormal speech; no loss of sensation, no headache(s) and no memory loss Psychiatric: no depression and no anxiety Hematologic / Lymphatic: no easy bleeding and no easy bruising Exam (Neuro) Constitutional: well developed and well nourished; no acute distress Eyes: normal visual osullivan by confrontation, PERRL, EOM intact bilaterally and + nystagmus Neurologic: Oriented to:: Person, Place and Time Memory: Short Term Intact and Remote Intact Attention: Span Intact and Concentration Intact Speech Fluency: Dysarthria Speech Aphasia: negative Aphasia Fund of Knowledge: Current Events, Past History and Vocabulary Cranial Nerves: Normal II, III, IV, , V, VII, VIII, IX, X, XI and XII Motor Strength: Normal Lower Extremities and Normal Upper Extremities Motor Tone: Normal Lower Extremities and Normal Upper Extremities Rigidity: None Muscle Bulk/Involuntary Movements: Intention Tremor; negative Muscle Atrophy or Pill Rolling Tremor Sensation: Light Touch Intact, Pain/Temperature Intact, Vibration Intact and Proprioception Intact Coordination: Dysdiadochokinesia, Finger-Nose Abnormal and Heel-Fairchild Abnormal Deep Tendon Reflexes: Rt Triceps: 2+, Lt Triceps: 2+, Rt Biceps: 2+, Lt Biceps: 2+, Rt Brachioradialis: 2+, Lt Brachioradialis: 2+, Rt Patellar: 2+, Lt Patellar: 2+, Rt Ankle: 2+ and Lt Ankle: 2+ Special Tests: negative Babinski Present Results & Data Vital Signs (Past 12 Hours) Vital Signs Temp Pulse Pulse Resp BP Pulse Ox O2 Del Method 09/14/24 07:14 36.6 C 72 24 170/84 H 95 Room Air 09/14/24 07:00 59 L 09/14/24 03:20 36.5 C 75 19 172/72 H Room Air 09/13/24 23:53 36.6 C 63 18 166/81 H 93 Room Air 09/13/24 22:41 36.5 C 65 18 178/81 H 96 Room Air 09/13/24 22:23 65 09/13/24 22:23 Room Air Laboratory Results WBC 7.74, hemoglobin 12.9, hematocrit 40.7, MCV 80.4, platelet count 243, sodium 141, potassium 3.9, BUN 10, creatinine 0.73, glucose 115, hemoglobin A1c 6.0, calcium 9.2, magnesium 2.0, AST 15, ALT 16, triglycerides 141, cholesterol 145, LDL 82, VLDL 28, HDL 35, vitamin B12 335, folate 11.16, TSH 1.[address] of the head, CTA of the head and neck, and brain MRI are as described in the HPI, I independently reviewed these images. Electrocardiogram reveals a normal sinus rhythm, 70 bpm. Coding Level of Care Code 59777 INT INP/OBS CARE MIN Diagnoses Wzlgu-teltq-mcoxpsfkpz degeneration G23.8 Multiple system atrophy C G23.8; G90.3 Cerebellar ataxia G11.9 Time Spent (min) 90 Comment Total time includes patient contact, chart review, counseling, note preparation
[2024-09-14] MEDS: ASPIRIN 81 MG ECTAB PO SCH (10:25)
[2024-09-14] MEDS: CLOPIDOGREL BISULFATE 75 MG TAB PO SCH (10:25)
[2024-09-14] MEDS: ATORVASTATIN 40 MG TAB PO SCH (10:25)
[2024-09-14] MEDS: METOPROLOL TARTRATE 25 MG TAB PO SCH (10:25)
[2024-09-14] MEDS: EZETIMIBE 10 MG TAB PO SCH (10:25)
[2024-09-14] MEDS: UMECLIDINIUM/VILANTEROL 62.5/25MCG 7 PUFFS/INHALER INH SCH (10:26)
[2024-09-14] MEDS: FLUTICASONE FUROATE 100MCG 14 PUFFS/INHALER INH SCH (10:26)
[2024-09-14] MEDS: FLUTICASONE PROPIONATE NA SPR 16 GM BTL NAE SCH (10:26)
--- NOTE | 2024-09-14 10:56 | Hospitalist Progress Note ---
Date of Service September 14, 2024 Assessment & Plan (1) Stroke-like symptoms: Plan: The patient has frequent falls and worsening motor control of all 4 extremities. He appears to have a cerebellar process going on. Neurology consultation ordered and pending. Current brain MRI scan negative for acute injury. Speech has evaluated the patient and cleared him for a diet. OT and PT assessments are pending (2) History of CVA with residual deficit: Plan: Supportive care. Continue current medical management (3) Ambulatory dysfunction: Plan: Supportive care. OT and PT assessments ordered and pending (4) CAD (coronary artery disease): Plan: Stable. Continue current medical management (5) Incidental pulmonary nodule, > 3mm and < 8mm: Plan: 6-month follow-up recommended Plan Await OT and PT assessments. Neurology consultation is pending. It appears he will need placement at the time of discharge next week Admission and Anticipated Discharge Date Admission Date: September 13, 2024 Subjective Alert and oriented. I do not know what his baseline is but he states he is chronically dysarthric with apparent movement disorder. Current brain MRI scan is negative for any acute injury. However, on physical exam he is dysarthric with nystagmus and abnormal motor control of all 4 extremities consistent with cerebellar etiology. Neurology consultation is ordered and pending. He has been seen by speech therapy and diet has been allowed. Cardiac echo report is pending. OT and PT evaluations ordered and pending. It appears he will need placement at the time of discharge sometime next week. Review of Systems 2 Review of Systems: Constitutionalno fever or chills ENTno blurred vision, no double vision, no epistaxis, no sore throat Respiratoryno cough, no wheezing, no shortness of breath Cardiacno palpitations, no chest pain, no syncope Elizabeth nausea, vomiting, diarrhea, melena, hematochezia GUno urinary retention, no urinary incontinence, no dysuria, no hematuria Musculoskeletalno joint pain, no muscle tenderness Skinno bruising, no rashes, no pruritus Neuroworsening coordination with frequent falls Psychno depression, no anxiety Physical Exam 2 Physical Exam: General-alert and oriented x3, no fever, no chills HEENT-head atraumatic and normocephalic, pupils equal and reactive to light, extraocular muscles intact. Tongue size appears normal Neck-no lymphadenopathy or thyromegaly, trachea midline Chest-clear to auscultation. No rales, wheezing or rhonchi Cardiac-regular rate and rhythm, normal S1 and S2 Abdomen-normal bowel sounds, no hepatosplenomegaly Extremities-no cyanosis, clubbing, or edema Neuro-dysarthric speech pattern. He is able to move all 4 extremities but with abnormal attempted tnrpdn-oe-gpye and xjxp-oy-iftv. He has baseline nystagmus. No apparent focal deficits Psych-normal affect, normal mood Results & Data Results & Data Vital Signs (Past 12 Hours) Vital Signs Temp Pulse Pulse Resp BP Pulse Ox O2 Del Method 09/14/24 07:14 36.6 C 72 24 170/84 H 95 Room Air 09/14/24 07:00 59 L 09/14/24 03:20 36.5 C 75 19 172/72 H Room Air 09/13/24 23:53 36.6 C 63 18 166/81 H 93 Room Air Laboratory Results 09/14/24 05:17 09/14/24 05:17 PG Care Time/CCT Total # of Minutes Spent Total Time Spent with Patient: Total time spent is greater than 50% in coordination of care (as documented) at patient's floor/unit and/or counseling patient: Coding Level of Care Code 37244 SUB INP/OBS CARE 3/50MIN Diagnoses Stroke-like symptoms R29.90 History of CVA with residual deficit I69.30 Ambulatory dysfunction R26.2 CAD (coronary artery disease) I25.10 Incidental pulmonary nodule, > 3mm and < 8mm R91.1
--- NOTE | 2024-09-14 18:03 | XCELERA ---
[id number]
[2024-09-14] MEDS: diphenhydrAMINE Capsule 25 MG CAP PO ONE (23:24)
[2024-09-15 06:54] LABS: Basophils # (auto) 0.01 K/uL (0.00-0.20); Basophils % (auto) 0.1 %; Eosinophils # (auto) 0.13 K/uL (0.00-0.50); Eosinophils % (auto) 1.9 %; Hematocrit (blood only) 43.5 % (42.0-52.0); Hemoglobin 13.9 g/dl (14.0-18.0); Immature Granulocytes # (auto) 0.03 K/uL (0.01-0.20); Immature Granulocytes % (auto) 0.4 %; Lymphocytes # (auto) 1.23 K/uL (1.20-3.40); Lymphocytes % (auto) 18.2 %; Mean Corpuscular Hemoglobin 25.7 pg (25.0-34.0); Mean Corpuscular Volume 80.4 fL (80.0-100.0); Mean Platelet Volume 8.8 fL (9.4-12.4); Monocytes # (auto) 0.43 K/uL (0.11-0.59); Monocytes % (auto) 6.4 %; Neutrophils # (auto) 4.91 K/uL (1.40-6.50); Platelet Count 249 K/uL (130-400); RDW Coefficient of Variation 13.6 % (11.5-14.5); RDW Standard Deviation 39.6 fL (36.4-46.3); Red Blood Count 5.41 M/uL (4.70-6.10); White Blood Count 6.74 K/ul (4.8-10.8)
[2024-09-15 07:17] LABS: Albumin Globulin Ratio 1.5 (0.9-2); Albumin Level 4.4 gm/dl (3.4-5.0); BUN Creatinine Ratio 14.3 (10-20); Bilirubin,Total 0.5 mg/dl (0.2-1.0); Calcium 9.7 mg/dl (8.6-10.3); Creatinine Clr Calc Pharmacy 150.3 ml/min; Globulin 2.9 gm/dl (2.5-4.0); Potassium 4.4 mmol/L (3.5-5.1); Total Protein 7.3 gm/dl (6.0-8.3)
[2024-09-15] MEDS ORDERED: ASPIRIN 81 MG ECTAB PO SCH (09:00)
--- NOTE | 2024-09-15 10:45 | Hospitalist Progress Note ---
Date of Service September 15, 2024 Assessment & Plan (1) Stroke-like symptoms: Plan: The patient has frequent falls and worsening motor control of all 4 extremities. Neurology consultation appreciated. 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 Current brain MRI scan negative for acute injury. Speech has evaluated the patient and he will undergo video swallow testing tomorrowSeptember 16. OT and PT assessments completed. He will either go home with home OT/PT or go to inpatient rehab. (2) History of CVA with residual deficit: Plan: Supportive care. Continue current medical management (3) Ambulatory dysfunction: Plan: Supportive care. OT and PT while hospitalized (4) CAD (coronary artery disease): Plan: Stable. Continue current medical management (5) Incidental pulmonary nodule, > 3mm and < 8mm: Plan: 6-month follow-up recommended Plan Hopeful discharge tomorrowSeptember 16. He will either go home with home OT/PT or go to inpatient rehab. Admission and Anticipated Discharge Date Admission Date: September 13, 2024 Subjective No new problems. Medically stable. OT and PT assessments noted. He either will go home with outpatient OT and PT or go to inpatient rehab. Video swallow test tomorrowSeptember 16 Review of Systems 2 Review of Systems: Constitutionalno fever or chills ENTno blurred vision, no double vision, no epistaxis, no sore throat Respiratoryno cough, no wheezing, no shortness of breath Cardiacno palpitations, no chest pain, no syncope Elizabeth nausea, vomiting, diarrhea, melena, hematochezia GUno urinary retention, no urinary incontinence, no dysuria, no hematuria Musculoskeletalno joint pain, no muscle tenderness Skinno bruising, no rashes, no pruritus Neuroworsening coordination with frequent falls Psychno depression, no anxiety Physical Exam 2 Physical Exam: General-alert and oriented x3, no fever, no chills HEENT-head atraumatic and normocephalic, pupils equal and reactive to light, extraocular muscles intact. Tongue size appears normal Neck-no lymphadenopathy or thyromegaly, trachea midline Chest-clear to auscultation. No rales, wheezing or rhonchi Cardiac-regular rate and rhythm, normal S1 and S2 Abdomen-normal bowel sounds, no hepatosplenomegaly Extremities-no cyanosis, clubbing, or edema Neuro-dysarthric speech pattern. He is able to move all 4 extremities but with abnormal attempted eazvyv-ad-hdka and upit-df-bdqy. He has baseline nystagmus. No apparent focal deficits Psych-normal affect, normal mood Results & Data Results & Data Vital Signs (Past 12 Hours) Vital Signs Temp Pulse Resp BP Pulse Ox O2 Del Method 09/15/24 10:29 Room Air 09/15/24 07:02 36.5 C 67 16 149/73 H 95 Room Air Laboratory Results 09/15/24 06:21 09/15/24 06:21 PG Care Time/CCT Total # of Minutes Spent Total Time Spent with Patient: Total time spent is greater than 50% in coordination of care (as documented) at patient's floor/unit and/or counseling patient: Coding Level of Care Code 78005 SUB INP/OBS CARE 2/35MIN Diagnoses Stroke-like symptoms R29.90 History of CVA with residual deficit I69.30 Ambulatory dysfunction R26.2 CAD (coronary artery disease) I25.10 Incidental pulmonary nodule, > 3mm and < 8mm R91.1
--- NOTE | 2024-09-15 12:21 | Neurology Progress Note ---
Date of Service September 15, 2024 Assessment & Plan (1) Cerebellar ataxia: (2) Cerebellar atrophy: Plan As described previously, this patient has a 6-year history of persistent, progressive ataxia. He has scanning, dysarthric speech, profound ataxia of the limbs, especially the upper limbs, and significant horizontal bilateral gaze evoked nystagmus, he also has a minimal degree of vertical nystagmus. Patient's brain MRI reveals significant cerebellar atrophy as described below. He does not have a history of alcohol use disorder, cancer, or rhomboencephalitis. Although he has had a right carotid endarterectomy in the past and has some atherosclerotic disease of the internal carotids as well as the left vertebral artery. His neurologic signs and symptoms and brain MRI are not suggestive of stroke as the underlying etiology for his persistent progressive symptoms. Furthermore, the chronicity and progression of his symptoms over the past 6 years would not be consistent with Melgoza Fuentes syndrome (descending GBS variant). His acquired cerebellar degeneration would be either idiopathic, or possibly related to a multiple system atrophy or spinocerebellar atrophy. Because neither of his parents were reportedly affected and none of his other 4 siblings reportedly have a similar condition, one could consider an autosomal recessive spinocerebellar ataxia. Although an autosomal dominant spinocerebellar ataxia cannot be fully excluded, however. Other causes of acquired ataxia such as vitamin e deficiency and gluten sensitivity ataxia could be considered. As mentioned previously, paraneoplastic cerebellar degeneration may not be fully excluded either. His brain MRI is not suggestive of prion disease. I have ordered some additional labs today including a celiac panel, RPR, vitamin e level, thiamine level, copper level, as well as the serum neocerebellar degeneration paraneoplastic profile (Quest code 13194). May consider pursuing genetic testing for spinocerebellar ataxia as an outpatient. Although there is no proven treatment for degenerative cerebellar ataxia. Some variants of spinocerebellar ataxia (as well as episodic ataxia) may respond to acetazolamide. I will order this patient a low-dose of acetazolamide, 250 mg twice daily. We can monitor for any improvement in his ataxia with this medication. I agree with fluoroscopy video swallowing test as ordered. This patient also has a history of sleep apnea with intolerance to CPAP. (He was snoring rather loudly when I first entered the room.) He informs me that he has been looking into the [employer] device for sleep apnea. PT/OT/speech therapy Patient may follow-up with me in the outpatient clinic in 3 to 4 weeks. Admission and Anticipated Discharge Date Admission Date: September 13, 2024 Subjective Follow-up regarding dysarthria, ataxia, nystagmus No change in patient's neurologic signs and symptoms. Patient interviewed again this morning. He confirms that his symptoms began insidiously about 6 years ago and have gotten progressively worse. He decided to come to [facility] because he had not had a satisfactory evaluation of his condition previously. He continues to deny any headache or neck pain, no fevers, no alteration in mental statu, although does have a history of s or cognitive functioning. He denies experiencing any double vision. He endorses mild transient dizziness with standing, no syncopal episodes. He denies any persistent or progressive neuropathy symptoms of the lower limbs. However, he does have a history of lumbar spinal stenosis and multiple lumbar spine surgeries. He is 1 of 5 siblings, none of his siblings have developed problems with dysarthria or ataxia. Neither of his parents had a similar condition. He again denies any history of significant alcohol use. He is not on a restrictive diet and has not had any significant change in weight. No diarrhea. No history of meningitis or encephalitis. No history of significant head injury. Results & Data Vital Signs (Past 12 Hours) Vital Signs Temp Pulse Resp BP Pulse Ox O2 Del Method 09/15/24 10:29 Room Air 09/15/24 07:02 36.5 C 67 16 149/73 H 95 Room Air Diagnostic Findings As described previously, his brain MRI does reveal significant atrophy of the cerebellum, especially the para vermian area bilaterally, best observed on sagittal T1 sequences. There is no abnormal signal on T2/FLAIR weighted sequences, and there is no abnormal postcontrast enhancement. There is no hydrocephalus. Exam (Neuro) Constitutional: well developed and well nourished; no acute distress Eyes: normal visual osullivan by confrontation, PERRL, EOM intact bilaterally and + nystagmus (Gaze evoked nystagmus noted bilaterally) Neurologic: Oriented to:: Person, Place and Time Memory: Short Term Intact and Remote Intact Attention: Span Intact and Concentration Intact Speech Fluency: Dysarthria and Other (Patient has scanning type speech) Speech Aphasia: negative Aphasia Fund of Knowledge: Current Events, Past History and Vocabulary Cranial Nerves: Normal II, III, IV, , V, VII, VIII, IX, X, XI and XII Motor Strength: Normal Lower Extremities and Normal Upper Extremities Motor Tone: Generalized Hypotonicity (Muscle tone seems modestly hypotonic, especially for the upper limbs) Muscle Bulk/Involuntary Movements: Intention Tremor; negative Muscle Atrophy, Rest Tremor (Arm) or Head Tremor Sensation: Light Touch Intact, Pain/Temperature Intact and Proprioception Intact Coordination: Dysdiadochokinesia, Finger-Nose Abnormal and Heel-Fairchild Abnormal Deep Tendon Reflexes: Rt Triceps: 2+, Lt Triceps: 2+, Rt Biceps: 2+, Lt Biceps: 2+, Rt Brachioradialis: 2+, Lt Brachioradialis: 2+, Rt Patellar: 2+ and Lt Patellar: 2+ Special Tests: negative Babinski Present Details: Patient exhibits significant ataxia with cxrgar-jq-ixej bilaterally, poor postural check, scanning type speech which is slow, monotonous sounding, with variable force. He has significant gaze evoked nystagmus with horizontal gaze bilaterally. Minimal vertical nystagmus. He exhibits saccadic intrusions as well. Coding Level of Care Code 52909 SUB INP/OBS CARE 3/50MIN Diagnoses Cerebellar ataxia G11.9 Cerebellar atrophy G31.9 Time Spent (min) 60 Comment Total time includes patient contact, chart review, counseling, note preparation
[2024-09-15] MEDS: acetaZOLAMIDE 250 MG TAB PO SCH (15:25)
[2024-09-15 19:38] VITALS: PULSE 64
[2024-09-16] MEDS: diphenhydrAMINE Capsule 25 MG CAP PO STA (00:09)
[2024-09-16 07:35] VITALS: BP 118/72; RESP 18; TEMP 97.5; O2SAT 96
[2024-09-16 07:55] LABS: Basophils # (auto) 0.01 K/uL (0.00-0.20); Basophils % (auto) 0.1 %; Eosinophils # (auto) 0.15 K/uL (0.00-0.50); Hematocrit (blood only) 44.9 % (42.0-52.0); Hemoglobin 14.9 g/dl (14.0-18.0); Immature Granulocytes # (auto) 0.03 K/uL (0.01-0.20); Immature Granulocytes % (auto) 0.4 %; Lymphocytes # (auto) 1.27 K/uL (1.20-3.40); Lymphocytes % (auto) 17.3 %; Mean Corpuscular Hemoglobin 26.2 pg (25.0-34.0); Mean Corpuscular Hgb Conc 33.2 g/dL (32.0-36.0); Monocytes # (auto) 0.41 K/uL (0.11-0.59); Monocytes % (auto) 5.6 %; Neutrophils # (auto) 5.46 K/uL (1.40-6.50); Neutrophils % (auto) 74.6 %; Platelet Count 301 K/uL (130-400); RDW Coefficient of Variation 13.7 % (11.5-14.5); RDW Standard Deviation 38.7 fL (36.4-46.3); Red Blood Count 5.68 M/uL (4.70-6.10); White Blood Count 7.33 K/ul (4.8-10.8)
[2024-09-16 08:03] LABS: Albumin Globulin Ratio 1.5 (0.9-2); Albumin Level 4.7 gm/dl (3.4-5.0); BUN Creatinine Ratio 17.3 (10-20); Bilirubin,Total 0.5 mg/dl (0.2-1.0); Calcium 10.2 mg/dl (8.6-10.3); Creatinine Clr Calc Pharmacy 129.9 ml/min; Globulin 3.2 gm/dl (2.5-4.0); Potassium 4.3 mmol/L (3.5-5.1); Total Protein 7.9 gm/dl (6.0-8.3)
--- NOTE | 2024-09-16 11:26 | Discharge Summary ---
Discharge Summary Date of Service September 16, 2024 Principal Dx & Hospital Course #1 = Principal Diagnosis (1) Stroke-like symptoms: Patient presented to the ED on 09/13/2024 for stroke like symptoms. Previous workup at [facility] had been benign. Brain MRI was negative. Neurology consulted and following. Symptoms consistent with olivopontocerebellar degeneration. Acetazolamide 250mg PO BID started inpatient and advised to continue outpatient. He is to follow up in 3-[address] Knight. PT/OT outpatient Speech recommending single sips of liquid and no straws. (2) CAD (coronary artery disease): Stable. Metoprolol dosage switched from 50mg daily to 25mg BID on discharge. (3) Incidental pulmonary nodule, > 3mm and < 8mm: 6-month follow-up recommended, defer to PCP for scheduling. Plan updated sister via phone 09/16 of discharge instructions. Admission HPI Per Admitting Provider The patient is a 59-year-old male with a past medical history including COPD, hyperlipidemia, insomnia, previous CVA, chronic pain syndrome with history of multiple lumbar spine surgeries and left lower extremity weakness, vertigo, diabetes mellitus, GERD, BPH with LUTS, coronary artery stent x 2, carotid artery stenosis and history of right CEA. He is brought to the emergency department by family as noted above. Main complaints are worsening slurred speech over the past 3 weeks, drooling left side of his mouth, worsening ambulatory dysfunction with frequent falls. He has still been able to take his usual medications as directed. Discharge Exam Constitutional WD/WN, vitals as above Eyes PERRL, conjunctivae normal, anicteric sclerae Respiratory breathing unlabored Cardiovascular well perfused Skin no rashes, warm and dry Psychiatric A+Ox3, euthymic affect Discharge Plan Discharge Items Patient Disposition: Home - Home Health Services Reason For Visit: STROKE LIKE SYMPTOMS Discharge Diagnosis: olivopontocerebellar degeneration Activity: Resume your previous activity Non-emergency contact: Primary Care Provider and Neurologist Call non-emergency contact if: you have any medication questions and your symptoms worsen Follow-up/Referrals: Castillo Knight MD [Physician] - (3-4 weeks LEFT MESSAGE ON DR DUVALL OFFICE NUMBER TO CALL THE PATIENT WITH A HOSPITAL FOLLOW VISIT IN 3-[address] KNIGHT) Juancho Raymond MD [Physician] - 09/18/24 1:30 pm (Please follow up with [facility] on Monday09/18/2024 at 1:30pm. Dr Miller is not available that day, so your appointment is with Dr Juancho Raymond. If you have any questions or need to reschedule, please call the office at [phone].) Diet: Carb Consistent or DM2 and Heart Healthy Addtl Attending Provider Instructions: Mr. Franks, You were recently hospitalized for experiencing neurological symptoms. You were evaluated by the neurologist, Dr. 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 Please see recommendations below regarding your discharge. 1. Please start taking Acetazolamide twice daily. This was recommended by Dr. Knight. 2. Please follow up with Dr. Knight in 3-4 weeks upon discharge. If you do not hear from his office by the end of the day tomorrow, please call for your appt. time. 3. Your Metoprolol has been changed to 25mg twice daily (previously 50mg daily.) The remainder of your medications may be resumed. 4. Your CT scan did show a 6mm lung nodule. Please follow up with your PCP to get a repeat CT scan in 6 months. 4. Your PCP appointment is on Tuesday 09/18. 5. Recommendations from speech: small single sips of liquid. No straws. If you develop any worsening symptoms including chest pain, shortness of breath, fever, chills please report back to the ER for further care. Sincerely, Isela Betts PA-C Pending Studies at Discharge: No Stand-Alone Forms: My [facility] 9+, Smoking Cessation Medications and DC Order Prescriptions: New acetazolamide 250 mg Tablet 250 mg PO BID17 Qty: 60 0RF metoprolol tartrate 25 mg Tablet 25 mg PO BID Qty: 60 0RF Continued albuterol sulfate 90 mcg/actuation HFA aerosol inhaler 2 puff INHALATION 4XD PRN (Reason: Shortness Of Breath) atorvastatin 40 mg tablet 40 mg DAILY clopidogrel 75 mg tablet 75 mg PO DAILY diazepam 5 mg tablet 5 mg PO HS ezetimibe 10 mg tablet 10 mg PO DAILY fluticasone propionate 50 mcg/actuation spray,suspension 2 spray INTRANASAL DAILY hydrocodone-acetaminophen 7.5-325 mg tablet 1 tab PO 3XD PRN (Reason: Pain) meclizine 25 mg tablet 25 mg PO TID PRN (Reason: Dizziness Or Vertigo) metformin 500 mg tablet 500 mg PO BID pantoprazole 40 mg tablet,delayed release (DR/EC) 40 mg PO DAILY Trelegy Ellipta 100-62.5-25 mcg blister with device 1 inh INHALATION DAILY zaleplon 5 mg capsule 5 mg PO HS aspirin 81 mg tablet,delayed release (DR/EC) 81 mg PO DAILY Narcan 4 mg 4 mg intranasal PRN (Reason: Opioid Overdose) DuoNeb 2.5 mg NEB Q4 PRN (Reason: Shortness Of Breath) Changed terazosin 5 mg capsule 5 mg PO DAILY Qty: 30 0RF Discontinued metoprolol tartrate 50 mg tablet 50 mg PO DAILY Discharge Orders: Discharge Order (Routine); Ordered 09/16/24 Ordered By: Isela العراقي/Other Patient Handouts: Acetazolamide Oral Tablet, Managing Type 2 Diabetes, What Is Dysarthria, Dysarthria: Improving Speech, Anatomy of the Brain, Treating Dysarthria Admission Data Admit Date/Time: 09/13/24 20:57 Attending Provider: Aidan Hamilton Admit Provider: Cheng Traore Primary Care Provider: PCP,NO Other Providers: Cheng Traore; Castillo Knight. Other Interventions: Discharge Summary Assessment (RN) Last Done: 09/16/24 13:41 Hospital Stay Data Consultations 09/13/24 19:34 ED Decision to Admit Stat 09/13/24 22:23 Consult Neurology Routine Diagnostic Imagining Performed 09/13/24 17:32 CT angio head w con Stat CT angio neck with con Stat CT head/brain wo con Stat 09/13/24 20:02 MRI Brain [MR brain wo/w con] Stat 09/16/24 07:05 FL video swallow Routine Pending Results Patient Have Any Pending Studies at Discharge: No Discharge Instructions Given to Patient (Per Discharging Provider) Mr. Franks, Jorge were recently hospitalized for experiencing neurological symptoms. You were evaluated by the neurologist, Dr. 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 Please see recommendations below regarding your discharge. 1. Please start taking Acetazolamide twice daily. This was recommended by Dr. Knight. 2. Please follow up with Dr. Knight in 3-4 weeks upon discharge. If you do not hear from his office by the end of the day tomorrow, please call for your appt. time. 3. Your Metoprolol has been changed to 25mg twice daily (previously 50mg daily.) The remainder of your medications may be resumed. 4. Your CT scan did show a 6mm lung nodule. Please follow up with your PCP to get a repeat CT scan in 6 months. 4. Your PCP appointment is on Tuesday 09/18. 5. Recommendations from speech: small single sips of liquid. No straws. If you develop any worsening symptoms including chest pain, shortness of breath, fever, chills please report back to the ER for further care. Sincerely, Isela Betts PA-C Supervising Physician Co-Signing Physician Notes Attending Attestation & Discharge Note: Pt seen/examined, chart reviewed, care plan d/w GILBERT Betts. I agree w/ the plascencia components of her discharge documentation. 59yo male with history of CAD, carotid artery stenosis, prior stroke. Presented with worsening slurred speech, ataxia, etc over several weeks-months. Recently admitted to [facility] for same. Underwent stroke w/u there and, by report, imaging was negative for acute CVA. Brought to [facility] to have another opinion regarding his worsening neurological symptoms. While here also underwent MRI brain. This was negative for acute stroke. Seen by [facility] Neurology. [place] to have cerebellar degeneration. Etiology of such uncertain - Multiple systems atrophy vs olivopontocerebellar degeneration vs other disease postulated as the cause of current symptoms/signs. Seen by PT/OT - cleared to return home with family. Started on diamox BID for presumed cerebellar degeneration. Tolerated such before d/c. Will need close f/u with [facility] Neurology shortly after discharge home. Discharge exam: gen - sitting in chair, expressive aphasia, NAD neck - no JVD heart - RRR, s1 s2, no murmur lungs - CTA b/l abd - soft NT ND BS+ ext - pulses 2+ b/l neuro - ataxia present with finger/nose/finger maneuver, expressive aphasia present Aidan Hamilton MD Total Time Total Time Spent Total Time Spent (In Minutes): 40 Total Time Includes: Examination of the Patient, Discharge Planning and Medi cation Reconciliation Coding Level of Care Code 94108 INP/OBS DISCH >30 MIN Diagnoses Stroke-like symptoms R29.90 CAD (coronary artery disease) I25.10 Incidental pulmonary nodule, > 3mm and < 8mm R91.1
--- NOTE | 2024-09-16 12:25 | Fluoroscopy Report ---
MODIFIED BARIUM SWALLOW CLINICAL HISTORY: r/o aspiration COMPARISON STUDY: None. FLUOROSCOPY TIME: 1.58 minutes. Ka,r: 21.5 mGy. TECHNIQUE: A modified barium swallow was performed in conjunction with Speech Pathology. The patient ingested varying consistencies of barium containing material. Video fluoroscopy was performed. FINDINGS: Initially, there was no tracheal aspiration with thin liquids. However, a small amount of s ilent tracheal aspiration was identified with sequential swallows of thin liquids. There was no aspir ation with chin tuck. No aspiration was identified with nectar thick liquids, pudding or cracker and pudding consistencies. IMPRESSION: 1. Small amount of silent tracheal aspiration with sequential swallows of thin liquids. No aspiration with chin tuck. No aspiration with remainder of the consistencies. 2. Full recommendations by Speech pathology to follow. ACT 112: Negative or not required by law. Electronically signed by: Deven Zapata M.D. 09/16/2024 12:23 PM
[2024-09-18 00:32] LABS: IgA Serum 185 mg/dL (47-310)
--- NOTE | 2024-09-18 05:53 | Electrocardiogram Report ---
Test Reason : Blood Pressure : */* mmHG Vent. Rate : 70 BPM Atrial Rate : 70 BPM P-R Int : 158 ms QRS Dur : 86 ms QT Int : 384 ms P-R-T Axes : 29 43 59 degrees QTcB Int : 414 ms Normal sinus rhythm Normal ECG No previous ECGs available Confirmed by Benny Elmore ([id number]) on 09/18/2024 5:53:10 AM Referred By: NO PCP Confirmed By: Benny Elmore
== END 2024-09-16 15:45 | disposition home or self-care (01) | DRG 57 ==
LOC: ED 17:04 → 2S 20:57 → SUATTDRO 20:57 → 2S 22:05 → 3N 09-14 11:45